=== PATIENT | female | born 1985 | race Caucasian/White ===

== ENCOUNTER 2023-04-30 17:29 | Emergency (ER) | payer OTHER, SELFPAY ==
--- NOTE | 2023-04-30 17:26 | ECG_ITS ---
APPROVED REPORT Exam: Resting ECG HR:90 bpm ECG Measurements Heart Rate 90 AXES VT 179 P 60 QRSd 93 QRS 128 QT 351 T 70 QTc 399 Conclusion SINUS RHYTHM WITH OCCASIONAL VENTRICULAR PREMATURE COMPLEXES ABNORMAL ECG UNCONFIRMED REPORT Electronically signed by : Cheng Trevino MD 05/02/2023 16:06:36
[2023-04-30 17:30] VITALS: BP 135/110; PULSE 93; RESP 21; TEMP 36.8; O2SAT 98; BMI 32.0
[2023-04-30 17:32] VITALS: BMI 32.0
--- NOTE | 2023-04-30 17:33 | XR_ITS ---
PROCEDURE INFORMATION: Exam: XR Chest Exam date and time: 04/30/2023 5:37 PM Age: 38 years old Clinical indication: Pain; Chest pressure; Additional info: Cp TECHNIQUE: Imaging protocol: Radiologic exam of the chest. Views: 1 view. COMPARISON: No relevant prior studies available. FINDINGS: Lungs: Unremarkable. No consolidation. Pleural spaces: Unremarkable. No pleural effusion. No pneumothorax. Heart/Mediastinum: Unremarkable. No cardiomegaly. Diaphragm: There is elevation of the right hemidiaphragm. Bones/joints: Unremarkable. IMPRESSION: No dense parenchymal consolidation, pleural effusion, or pneumothorax.
--- NOTE | 2023-04-30 17:40 | CT_ITS ---
PROCEDURE INFORMATION: Exam: CTA Neck Without And With Contrast Exam date and time: 04/30/2023 6:24 PM Age: 38 years old Clinical indication: Paralysis, transient of limb; Additional info: Chest pain radiating up neck, L sided paresthesias TECHNIQUE: Imaging protocol: Computed tomographic angiography of the neck without and with contrast. 3D rendering (Not supervised by radiologist): MIP and/or 3D reconstructed images were created by the technologist. Radiation optimization: All CT scans at this facility use at least one of these dose optimization techniques: automated exposure control; mA and/or kV adjustment per patient size (includes targeted exams where dose is matched to clinical indication); or iterative reconstruction. Contrast material: ISOVUE 370; Contrast volume: 100 ml; Contrast route: INTRAVENOUS (IV); REPORTING DATA: Count of CT and Cardiac NM exams in prior 12 months: This patient has received 0 known CTs and 0 known cardiac nuclear medicine studies in the 12 months prior to the current study. COMPARISON: CT HEAD/BRAIN WO CON 04/30/2023 6:21 PM FINDINGS: Right common carotid artery: No stenosis. No dissection or occlusion. Right internal carotid artery: No stenosis of the extracranial segment. No dissection or occlusion. Right external carotid artery: No occlusion or stenosis of the origin. Left common carotid artery: No stenosis. No dissection or occlusion. Left internal carotid artery: No stenosis of the extracranial segment. No dissection or occlusion. Left external carotid artery: No occlusion or stenosis of the origin. Right vertebral artery: No stenosis. No dissection or occlusion. Left vertebral artery: No stenosis. No dissection or occlusion. Soft tissues: Normal. No significant soft tissue swelling. Bones/joints: No acute fracture. IMPRESSION: No stenosis or occlusion. REFERENCES: NASCET CRITERIA. The degree of stenosis in the cervical segment of the internal carotid artery is based on NASCET criteria. Normal is no stenosis. Mild is less than 50% stenosis. Moderate is 50-69% stenosis. Severe is 70% to 99% stenosis. Total occlusion is no detectable patent lumen.
--- NOTE | 2023-04-30 17:40 | CT_ITS ---
PROCEDURE INFORMATION: Exam: CTA Head Without And With Contrast, Arteriography Exam date and time: 04/30/2023 6:24 PM Age: 38 years old Clinical indication: Paralysis, transient of limb; Additional info: Chest pain radiating up neck, L sided paresthesias TECHNIQUE: Imaging protocol: Computed tomographic angiography of the head without and with contrast. Exam focused on the arteries. 3D rendering (Not supervised by radiologist): MIP and/or 3D reconstructed images were created by the technologist. Radiation optimization: All CT scans at this facility use at least one of these dose optimization techniques: automated exposure control; mA and/or kV adjustment per patient size (includes targeted exams where dose is matched to clinical indication); or iterative reconstruction. Contrast material: ISOVUE 370; Contrast volume: 100 ml; Contrast route: INTRAVENOUS (IV); REPORTING DATA: Count of CT and Cardiac NM exams in prior 12 months: This patient has received 0 known CTs and 0 known cardiac nuclear medicine studies in the 12 months prior to the current study. COMPARISON: CT HEAD/BRAIN WO CON 04/30/2023 6:21 PM FINDINGS: ANTERIOR CIRCULATION: Right internal carotid artery: Intracranial segment is patent with no significant stenosis or occlusion. No aneurysm. Right middle cerebral artery: No occlusion or significant stenosis. No aneurysm. Right anterior cerebral artery: No occlusion or significant stenosis. No aneurysm. Left internal carotid artery: Intracranial segment is patent with no significant stenosis. No aneurysm. Left middle cerebral artery: No occlusion or significant stenosis. No aneurysm. Left anterior cerebral artery: No occlusion or significant stenosis. No aneurysm. POSTERIOR CIRCULATION: Right vertebral artery: No occlusion or significant stenosis. No aneurysm. Left vertebral artery: No occlusion or significant stenosis. No aneurysm. Basilar artery: No occlusion or significant stenosis. No aneurysm. Right posterior cerebral artery: No occlusion or significant stenosis. No aneurysm. Left posterior cerebral artery: No occlusion or significant stenosis. No aneurysm. HEAD: Brain: Normal. No hemorrhage. Unremarkable white matter. No mass effect. Cerebral ventricles: Normal. No ventriculomegaly. Bones/joints: Unremarkable. No acute fracture. Paranasal sinuses: Visualized sinuses are normal. No fluid levels. Mastoid air cells: Visualized mastoids are normal. No mastoid effusion. Soft tissues: Unremarkable. IMPRESSION: No large vessel occlusion. Unremarkable CT head.
--- NOTE | 2023-04-30 17:40 | CT_ITS ---
PROCEDURE INFORMATION: Exam: CTA Chest Without And With Contrast Exam date and time: 04/30/2023 6:27 PM Age: 38 years old Clinical indication: Pain; Chest pressure; Additional info: Chest pain radiating up neck, L sided paresthesias TECHNIQUE: Imaging protocol: Computed tomographic angiography of the chest without and with contrast. Exam focused on the arteries. 3D rendering (Not supervised by radiologist): MIP and/or 3D reconstructed images were created by the technologist. Radiation optimization: All CT scans at this facility use at least one of these dose optimization techniques: automated exposure control; mA and/or kV adjustment per patient size (includes targeted exams where dose is matched to clinical indication); or iterative reconstruction. Contrast material: ISOVUE 370; Contrast volume: 70 ml; Contrast route: INTRAVENOUS (IV); REPORTING DATA: Count of CT and Cardiac NM exams in prior 12 months: This patient has received 0 known CTs and 0 known cardiac nuclear medicine studies in the 12 months prior to the current study. COMPARISON: CR XR CHEST PORTABLE 04/30/2023 5:37 PM FINDINGS: Pulmonary arteries: Normal. No pulmonary emboli. Aorta: Unremarkable. No aortic aneurysm. No aortic dissection. Thyroid: There is heterogeneity of the thyroid gland for which nonemergent thyroid ultrasound should be considered. Lungs: There is patchy atelectasis at the lung bases. There is a calcified granuloma at the left lung base. Pleural spaces: Unremarkable. No pneumothorax. No pleural effusion. Heart: Unremarkable. No cardiomegaly. No pericardial effusion. Lymph nodes: Unremarkable. No enlarged lymph nodes. Bones/joints: Unremarkable. No acute fracture. Soft tissues: Unremarkable. IMPRESSION: 1. No evidence for clinically relevant pulmonary arterial filling defect, dense parenchymal consolidation, pleural effusion, or pneumothorax. No acute intrathoracic anomaly. 2. There is heterogeneity of the thyroid gland for which nonemergent thyroid ultrasound should be considered.
--- NOTE | 2023-04-30 17:40 | CT_ITS ---
PROCEDURE INFORMATION: Exam: CT Head Without Contrast Exam date and time: 04/30/2023 6:21 PM Age: 38 years old Clinical indication: Pain; Headache; Additional info: Cp radiating up neck, L sided paresthesias, PIERRE TECHNIQUE: Imaging protocol: Computed tomography of the head without contrast. Radiation optimization: All CT scans at this facility use at least one of these dose optimization techniques: automated exposure control; mA and/or kV adjustment per patient size (includes targeted exams where dose is matched to clinical indication); or iterative reconstruction. REPORTING DATA: Count of CT and Cardiac NM exams in prior 12 months: This patient has received 0 known CTs and 0 known cardiac nuclear medicine studies in the 12 months prior to the current study. COMPARISON: No relevant prior studies available. FINDINGS: Brain: There are calcifications of the pineal gland. No evidence for acute intracranial hemorrhage, midline shift, or mass effect. No convincing evidence for acute transcortical infarct. Cerebral ventricles: There are calcifications of the choroid plexus. Paranasal sinuses: Visualized sinuses are unremarkable. No fluid levels. Mastoid air cells: Visualized mastoid air cells are well aerated. Bones/joints: Unremarkable. No acute fracture. Soft tissues: Unremarkable. IMPRESSION: No evidence for acute intracranial hemorrhage, midline shift, or mass effect. No convincing evidence for acute transcortical infarct.
[2023-04-30 17:45] LABS: Basophils # 0.1 K/mm3 (0-0.2); Basophils % 0.6 % (0.1-2.0); Eosinophils # 0.1 K/mm3 (0.0-0.4); Eosinophils % 1.1 % (0.1-12.0); Hematocrit 45.6 % (37.0-47.0); Hemoglobin 14.9 g/dL (12.2-16.2); Lymphocytes # 3.1 K/mm3 (0.7-4.5); Lymphocytes % 28.7 % (10-50); Mean Corpuscular HGB Conc 32.7 g/dL (31.8-35.4); Mean Corpuscular Hemoglobin 29.4 pg (27.0-31.2); Mean Corpuscular Volume 90.1 fl (81-99); Mean Platelet Volume 8.4 fl (7.4-10.4); Monocytes # 0.6 K/mm3 (0.1-1.0); Monocytes % 5.2 % (1.7-9.3); Neutrophils # 6.9 K/mm3 (1.8-7.8); Neutrophils % 64.4 % (37.0-80.0); Platelet Count 307 K/mm3 (142-424); Red Blood Count 5.06 M/mm3 (4.20-5.40); Red Cell Distribution Width 13.3 % (11.5-17.5); White Blood Count 10.8 K/mm3 (4.8-10.8)
[2023-04-30 17:54] VITALS: PULSE 90
[2023-04-30 18:00] VITALS: BP 147/108; PULSE 87; RESP 18; O2SAT 97
[2023-04-30 18:02] LABS: Alanine Aminotransferase 17 U/L (12-78); Albumin/Globulin Ratio 1.1 (1.1-1.8); Alkaline Phosphatase 89 U/L (38-126); Anion Gap 15.6 mEq/L (5-15); Aspartate Amino Transferase 27 U/L (14-36); Bilirubin,Total 0.3 mg/dl (0.2-1.3); Blood Urea Nitrogen 10 mg/dl (7-17); Calcium 9.9 mg/dl (8.4-10.2); Carbon Dioxide 26 mmol/L (22.0-30.0); Chloride 103 mmol/L (98-107); Creatinine Clearance Estimated 99 mL/min (50-200); Estimated Glomerular Filt Rate 70 ml/min (>60); GFR (African American) 84 ML/MIN (>60); Globulin 4.4 g/dL (1.3-3.2); Glucose 97 mg/dl (74-100); Potassium 3.6 mmoL/L (3.5-5.1); Sodium 141 mmol/L (136-145); Total Protein,Serum 9.4 g/dl (6.3-8.2)
[2023-04-30 18:07] LABS: C-Reactive Protein 1.1 mg/L (0-4); HCG Qualitative, Serum Negative (Negative)
--- NOTE | 2023-04-30 18:16 | PC.NURSE ---
pt transported to radiology.
[2023-04-30 18:17] LABS: Troponin I < 0.01 ng/ml (0.00-0.034)
[2023-04-30 18:31] LABS: Adenovirus,PCR Not Detected (NotDetected); Bordetella Pertussis Not Detected (NotDetected); Chlamydophila Pneumoniae, PCR Not Detected (NotDetected); Coronavirus 19, PCR Not Detected (NotDetected); Coronavirus 229E Not Detected (NotDetected); Coronavirus NL63 Not Detected (NotDetected); Coronavirus OC43 Not Detected (NotDetected); Coronovirus HKU1,PCR Not Detected (NotDetected); Human Metapneumovirus Not Detected (NotDetected); Influenza A, PCR Not Detected (NotDetected); Influenza AH1, 2009 Not Detected (NotDetected); Influenza AH1, PCR Not Detected (NotDetected); Influenza AH3,PCR Not Detected (NotDetected); Influenza B, PCR Not Detected (NotDetected); Mycoplasma Pneumoniae, PCR Not Detected (NotDetected); Parainfluenza 1, PCR Not Detected (NotDetected); Parainfluenza 2, PCR Not Detected (NotDetected); Parainfluenza 3, PCR Not Detected (NotDetected); Parainfluenza 4, PCR Not Detected (NotDetected); Respiratory Syncytial Virus Not Detected (NotDetected); Rhinovirus/Enterovirus Not Detected (NotDetected)
[2023-04-30 18:35] LABS: Erythrocyte Sedimentation Rate 31 mm/hr (0-20)
--- NOTE | 2023-04-30 19:07 | [facility].EDGENADL ---
Discharge Plan Disposition Patient Disposition: Home, Self-Care Condition: Good Referrals Follow up/Referrals: Nasrin Rebolledo APRN [Primary Care Provider] - See instructions Activity Restrictions/Add. Instructions Additional Instructions/Restrictions: You were evaluated in the emergency department today. At this time, we feel that your symptoms are related to a viral illness. Take Tylenol and ibuprofen at home as needed for pain. Follow-up with your primary care provider over the next 48 hours for reassessment. Keep a log of your blood pressure at home. Take it twice a day. Present them with your log when you see them. They also can follow-up on your abnormal thyroid on CT scan. Typically outpatient ultrasound is used to evaluate this. Return to the emergency department for new or worsening symptoms. Clinical Impressions Clinical Impression: Chest pain, Headache, Acute viral syndrome, Thyroid condition Instructions Patient Instructions: DI for Atypical Chest Pain, DI for Viral Syndrome Discharge ED Provider: Soraida Abdalla General Adult HPI General Chief complaint: Chest Pain Stated complaint: chest pain, high blood pressure Time Seen by Provider: 04/30/23 17:30 Mode of Arrival: Wheelchair Source of Information: Patient Limitations: No Limitations Description of Symptoms (Recalled from ER Triage Doc. by RN): Pt c/o left sided chest pain that radiates into her upper back and down her left arm. States she has been having this pain since Friday. She was seen at [facility] and was negative for [place], covid, & flu. States she was seen at PCP office today and was tachycardic and needs a full cardiac work-up . PCP office gave pt 162mg of aspirin prior to leaving for ER. Pt also c/o headache, cough, and congestion. History of Present Illness HPI narrative: This patient is a 38-year-old female with history of hyperlipidemia scented to the emergency department for evaluation with concern for chest pain radiating down her left arm and up to her left neck. She states that it started on Friday. She also had cough, congestion, and other concerns. She states that she was seen in urgent treatment center and then ultimately seen in [facility], which when she states she was negative for COVID, flu, and [place]. She states that she saw her PCP today and was noted to be tachycardic and was sent here for full cardiac work-up. She notes that she has had high blood pressure with systolics in the 140s, which is unlike her. She also had cough, congestion, and headache. States that headache has been constant since Friday. Nothing seems to make her symptoms better or worse. She does note anxiety and stress. Related Data Allergies Allergy/AdvReac Type Severity Reaction Status Date / Time ampicillin Allergy Unknown childhood Verified 04/30/23 17:33 reaction PFSH [facility] Disclaimer: The information contained in this section may have been updated after the patient was seen, as this information can be updated by other users. Social History Smoking Status: Former smoker alcohol intake: never current occupational status: employed Travel in the last 8 weeks: None ROS Obtained: Yes All systems reviewed & no additional complaints except as documented Physical Exam General General appearance: alert, in no apparent distress and anxious Head Head exam: atraumatic and normocephalic Eye Eye exam: Present normal appearance, PERRL and EOMI ENT ENT exam: Present normal exam, normal oropharynx, mucous membranes moist and normal external ear exam Neck Neck exam: Present normal inspection, full ROM and trachea midline; Absent tenderness Chest Chest inspection: Present normal inspection and symmetric chest wall rise; Absent tenderness Respiratory Respiratory exam: Present normal lung sounds bilaterally; Absent respiratory distress, wheezes, stridor or accessory muscle use
--- NOTE | 2023-04-30 19:33 | PC.NURSE ---
pt resting bed, left leg elevated, good pulses, cap refill less than 3, aware that [facility] accepted pt in transfer, agreeable to go
[2023-04-30 19:58] LABS: Thyroid Stimulating Hormone 3.28 uIU/mL (0.465-4.68)
[2023-04-30 20:23] VITALS: BP 148/94; PULSE 79; RESP 18; TEMP 36.8; O2SAT 97
== END 2023-04-30 20:24 | disposition home or self-care (01) ==
PROVIDERS: Emergency Provider Emergency Medicine; PCP Nurse Practitioner Family
DX: R07.89 Other chest pain (principal); R51.9 Headache, unspecified; M54.6 Pain in thoracic spine; M79.602 Pain in left arm; B34.9 Viral infection, unspecified; Z87.891 Personal history of nicotine dependence; I44.5 Left posterior fascicular block; I45.19 Other right bundle-branch block
CPT/HCPCS: 70450; 70496; 70498; 71045; 71275; 80053; 84436; 84443; 84484; 84703; 85025; 85651; 86140; 87581; 87632; 87798; 93005; 96361; 96374; 96375; 99285; J0131; Q9967